=== PATIENT | female | born 1995 | race Caucasian/White ===

== ENCOUNTER 2021-01-30 10:47 | Emergency (ER) | payer MEDICAID ==
[~2021-01-30] VITALS: Ht 160 cm; Wt 95.5 kg
[2021-01-30 11:18] LABS: COLLECTION METHOD CLEAN CATCH
[2021-01-30 11:33] LABS: MUCOUS Present /lpf; PH 7 (5-8); URINE APPEARANCE Hazy; URINE BACTERIA Rare /hpf; URINE BILIRUBIN Negative (NEGATIVE); URINE BLOOD Negative (NEGATIVE); URINE COLOR Yellow; URINE GLUCOSE Negative (NEGATIVE); URINE KETONE Negative (NEGATIVE); URINE LEUKOCYTE ESTERASE 3+ (NEGATIVE); URINE NITRATE Negative (NEGATIVE); URINE PROTEIN(semi-quant) Negative (NEGATIVE); URINE RBC 0-2 /hpf; URINE UROBILINOGEN Negative (NEGATIVE)
[2021-01-30 11:33] LABS: BASO % 0.4 % (0.0-2.0); EOS # 0.2 (0.0-0.7); EOS % 2.7 % (0-4.0); GRAN # 4.1 (1.4-6.5); GRAN % 54.8 % (42.2-75.2); HEMATOCRIT 37.2 % (37.0-47.0); LYMPH # 2.7 (1.2-3.4); LYMPH % 36.2 % (20.0-51.0); MEAN CELL VOLUME 89 fl (80.0-100.0); MEAN CORPUSCULAR HEMOGLOBIN 29 pg (27.0-31.0); MEAN CORPUSCULAR HGB CONC 32 g/dl (33.0-37.0); MEAN PLATELET VOLUME 10.2 fl (7.4-10.4); MONO # 0.4 (0.1-0.6); MONO % 5.6 % (1.7-9.3); PLATELET COUNT 233 K/mm3 (130-400); RED BLOOD COUNT 4.18 M/mm3 (4.10-5.30); REDCELL DISTRIBUTION WIDTH-CV 14.7 % (11.5-14.5)
[2021-01-30 11:50] LABS: ALBUMIN 4.3 gm/dL (3.5-5.0); BILIRUBIN,TOTAL 0.5 mg/dL (0.0-1.0); C-REACTIVE PROTEIN 0.9 mg/dL (0.0-0.9); CALCIUM 9.2 mg/dL (8.4-10.2); CREATININE, serum 0.61 (0.52-1.25); POTASSIUM 3.8 mmol/L (3.4-5.0); TOTAL PROTEIN 7.4 gm/dL (6.4-8.2)
[2021-01-30] MEDS ORDERED: PEPCID40 MG PO (12:30)
[2021-01-30 12:40] VITALS: BP 104/67; PULSE 77; TEMP 98
== END 2021-01-30 12:40 | disposition home or self-care (01) ==
LOC: COL.ER 10:47
PROVIDERS: Physician Assistant
DX: R10.13 Epigastric pain (principal); Z90.49 Acquired absence of other specified parts of digestive tract; Z32.02 Encounter for pregnancy test, result negative
CPT/HCPCS: C9113; J7030

== ENCOUNTER 2021-12-08 06:09 | Inpatient (IN) | payer MEDICAID ==
[~2021-12-08] VITALS: Ht 160 cm; Wt 112.7 kg
[2021-12-08] VITALS (27 sets, daily range): BP systolic 104–150; BP diastolic 57–89; PULSE 61–104; TEMP 97.5–98
[~2021-12-08 06:09] MED LIST: PEPCID40 MG PO
--- NOTE | 2021-12-08 06:15 | NUR ---
0615 - PATIENT AMBULATORY TO LDR4 ACCOMPANIED BY SIGNIFICANT OTHER. PATIENT OREINTED TO ROOM. PATIENT CHANGES INTO GOWN. 0630 - PLAN OF CARE REVIEWED. PATIENT DENIES CONTRACTIONS, BLOODY SHOW OR LEAKING OF FLUID. PATIENT REPORTS GOOD MOVEMENT. 0635 - PATIENT ON MONITOR. CONSENTS REVIEWED AND SIGNED. 0640 - SVE /-2. 0650 - IV STARTED AND LABS DRAWN ORDERED. LR INITIATED ORDERED. PLAN OF CARE REVIEWED. CARE ONGOING.
[2021-12-08 07:29] LABS: BASO # 0.1 K/mm3 (0.0-0.2); BASO % 0.4 % (0.0-2.0); EOS # 0.1 K/mm3 (0.0-0.7); EOS % 0.8 % (0.0-4.0); GRAN # 8.7 K/mm3 (1.4-6.5); GRAN % 74.7 % (42.2-75.2); HEMOGLOBIN 10.9 g/dl (12.5-16.0); LYMPH # 2.1 K/mm3 (1.2-3.4); LYMPH % 18.4 % (20.0-51.0); MEAN CELL VOLUME 83 fl (80.0-100.0); MEAN CORPUSCULAR HEMOGLOBIN 28 pg (27-31); MEAN CORPUSCULAR HGB CONC 34 g/dl (33.0-37.0); MEAN PLATELET VOLUME 11.7 fl (7.4-10.4); MONO # 0.6 K/mm3 (0.1-0.6); MONO % 5.1 % (1.7-9.3); PLATELET COUNT 216 K/mm3 (130-400); RED BLOOD COUNT 3.91 M/mm3 (4.10-5.30); REDCELL DISTRIBUTION WIDTH-CV 15.3 % (11.5-14.5)
[2021-12-08 07:35] LABS: HEMATOCRIT 32.4 % (37.0-47.0)
--- NOTE | 2021-12-08 08:53 | NUR ---
0853 - MD NJ AT BEDSIDE. PLAN OF CARE REVIEWED. 0855 - SVE PERFORMED BY MD NJ. 0856 - AROM PERFORMED BY MD NJ. PLAN OF CARE REVIEWED. CARE ONGOING.
--- NOTE | 2021-12-08 09:55 | NUR ---
0955 - PATIENT POSITIONED SITTING SIDE OF BED FOR EPIDURAL PLACEMENT. EFM TRACING INDESCERNIBLE DUE TO MATERNAL POSITION. MONITOR REPOSITIONED. 0957 - PAULINA ZELAYA AT BEDSIDE. 1007 - SS GIVEN. 1020 - PATIENT REPOSITIONED. SVE PERFORMED. /-1. CARE ONGOING.
--- NOTE | 2021-12-08 11:00 | NUR ---
1100 - PATIENT COMPLETE. MD NJ NOTIFIED. 1105 - POND D/C. 1110 - PATIENT PUSHING WITH CONTRACTIONS. GOOD MATERNAL EFFORT. 1112 - MD NJ AT BEDSIDE. PATIENT CONTINUES PUSHING WITH CONTRACTIONS. 1119 - SPONTANEOUS DELIVERY OF . HEAD FOLLOWED BY BODY. KRISTIN SALAZAR FOR NURSERY ASSUMES CARE OF . 1123 - SPONTANEOUS DELIVERY OF INTACT PLACENTA. PITOCIN BOLUS INITIATED. 1125 - REPAIR OF 1ST DEGREE LAC PERFORMED BY MD NJ. NASEEM CARE PERFORMED. PATIENT REPOSITIONED. CARE ONGOING.
[2021-12-09 02:00] VITALS: BP 103/59; PULSE 68; TEMP 97.5
[2021-12-09 07:19] VITALS: BP 116/62; PULSE 76; TEMP 98.1
[2021-12-09] MEDS ORDERED: IBU800 M1 PO (08:48)
[2021-12-09 16:32] VITALS: BP 112/68; PULSE 72; TEMP 98.1
== END 2021-12-09 16:35 | disposition home or self-care (01) | DRG 807 ==
LOC: LDR 06:09 → OB 06:09 → LDR 10:56 → OB 15:00
PROVIDERS: ADMIT Obstetrics & Gynecology
PROC: 10E0XZZ Delivery of Products of Conception, External Approach (ICD-10-PCS; principal; 2021-12-08)
PROC: 10907ZC Drainage of Amniotic Fluid, Therapeutic from Products of Conception, Via Natural or Artificial Opening (ICD-10-PCS; 2021-12-08)
PROC: 3E033VJ Introduction of Other Hormone into Peripheral Vein, Percutaneous Approach (ICD-10-PCS; 2021-12-08)
DX: O99.72 Diseases of the skin and subcutaneous tissue complicating childbirth (principal); Z37.0 Single live birth; O99.824 Streptococcus B carrier state complicating childbirth; L40.9 Psoriasis, unspecified; O69.81X0 Labor and delivery complicated by cord around neck, without compression, not applicable or unspecified; O70.0 First degree perineal laceration during delivery; Z3A.39 39 weeks gestation of pregnancy
CPT/HCPCS: J2540; J2590; J7120

== ENCOUNTER 2023-01-12 15:00 | Outpatient (RCR) | payer MEDICAID ==
[~2023-01-12 15:00] MED LIST changes: +IBU800 M1 PO
== END 2023-02-02 | disposition home or self-care (01) ==
LOC: MKS.ESL.PT
DX: M54.2 Cervicalgia (principal); M54.6 Pain in thoracic spine